=== PATIENT | male | born 1950 | race Two or more races ===

== ENCOUNTER → 2017-06-09 | Outpatient (CLI) | payer MEDICARE, OTHER ==
[~2017-06-09] MED LIST: ASPIR 8181 MG PO; ATORVASTATIN CA10 MG PO; CIPRO500 MG PO; FLOMAX0.4 MG PO; GLIMEPIRIDE4 MG PO; IOPAMIDOL 370 MG/ML 200 ML INFUS..BTL INJ ONE; LANTUS 3ML100 UNITS/ SQ; LEVOTHYROXINE150 MCG PO; LISINOPRIL10 MG PO; METFORMIN HCL1000 MG PO; SODIUM CHLORIDE 0.9% 250ML 250 ML ONE
[2017-06-09 16:38] LABS: BLOOD UREA NITROGEN 10 mg/dL (7-26); BUN/CREATININE RATIO 11 (6-25); CREATININE, SERUM 0.92 mg/dL (0.72-1.25); EST GLOMERULAR FILTRATION RATE > 60 ML/MIN (60-)
--- NOTE | 2017-06-09 19:13 | Diagnostic Imaging Report ---
PROCEDURE: CT ABDOMEN \T\ PELVIS W/WO CONTRAST COMPARISON:None. INDICATIONS:NOCTURIA TECHNIQUE: Axial CT images through the abdomen and pelvis were obtained from the lung bases through the pubic symphysis before and after the intravenous administration of nonionic contrast utilizing a urogram protocol. 100 cc of contrast was administered. Three-dimensional reformations of the kidneys, ureters, and bladder were obtained on a separate workstation FINDINGS: CT urogram: Right kidney: No renal calculus. A fat attenuating lesion in the lateral interpolar cortex measures 7 mm consistent with angiomyolipoma. A second fat attenuating lesion were inferior in the anterior interpolar cortex measures 7 mm. No evidence of cyst. No filling defect in the collecting system. Normal enhancement of the parenchyma. Left kidney: No evidence of renal calculus or cortical mass on unenhanced series. There is normal enhancement of the parenchyma. A low attenuating lesion in the posterior interpolar cortex measures 6 mm and is too small to characterize. There are no enhancing lesions. No filling defects in the collecting system. Bladder/ureters: No mural thickening or intraluminal filling defects in the bladder. The ureters are normal in diameter throughout there course without evidence of intrinsic or extrinsic defects. The prostate gland measures 4.8 x 6 x 0.9 cm in the axial plane. There are chunky calcifications lateral to the left lobe measuring up to 10 mm. Liver: Mildly decreased attenuation without mass Spleen: Normal size and attenuation without mass. Biliary: The gallbladder is present and normal in morphology. No biliary ductal dilatation. Pancreas: Normal attenuation without mass or ductal dilatation. Adrenal Glands: No evidence of mass Vasculature: The aorta contains atherosclerotic calcifications. No aneurysmal dilatation. GI: The stomach is collapsed. The small bowel is normal in diameter and wall thickness. There are a few diverticula in the large bowel without associated inflammation. The appendix is normal. Peritoneum/Retroperitoneum: No evidence of lymphadenopathy, free fluid, or fluid collection. MSK: Mild to moderate degenerative changes of the spine. Posterior disc osteophyte complexes protruding into the spinal canal from L1-L4. No compression deformities. There are no lytic or blastic lesions. Lung bases: Clear. Visualized portion of the mediastinum is unremarkable. CONCLUSION: 1. No renal calculus. No filling defects in the renal collecting systems, ureters, or bladder to suggest soft tissue mass. 2. 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 3. Low attenuating lesion in the left kidney could represent a cyst. 4. Prostate hypertrophy. 5. Diverticulosis coli. 6. Degenerative changes of the spine as described above. 7. Atherosclerosis. Dictated by: Darryl Moran M.D. on 06/09/2017 at 19:21 Electronically approved by: Darryl Moran M.D. on 06/09/2017 at 19:21
== END ==
LOC: CT 15:40
PROVIDERS: ATTEND Urology
DX: R35.1 Nocturia (principal)
CPT/HCPCS: 36415; 74178; 82565; 84520; J7050; Q9967